=== PATIENT | female | born 1990 | race Caucasian/White ===

== ENCOUNTER 2018-07-20 16:13 | Emergency (ER) | payer SELFPAY ==
[~2018-07-20] VITALS: Ht 160 cm; Wt 52.2 kg
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
[2018-07-20] MEDS ORDERED: ONDANSETRON 4 MG TAB.RAPDIS ONE (16:24)
[2018-07-20] MEDS ORDERED: HYDROCODONE/APAP 10/325MG 1 EA TABLET ONE (16:24)
[2018-07-20] MEDS ORDERED: LIDOCAINE 1% INJ 50 ML MDV IJ ONE ×2 (16:25→16:30)
[2018-07-20] MEDS ORDERED: ONDANSETRON 4 MG TAB.RAPDIS SL ONE (16:30)
[2018-07-20] MEDS ORDERED: HYDROCODONE/APAP 10/325MG 1 EA TABLET PO ONE (16:30)
--- NOTE | 2018-07-20 17:22 | NUR ---
PATIENT WAS TAKEN TO CT
--- NOTE | 2018-07-20 17:34 | NUR ---
PT IS BACK FROM CT
[2018-07-20 18:29] VITALS: BP 122/66
--- NOTE | 2018-07-20 18:29 | NUR ---
Patient discharged to home in stable condition. Written and verbal after care instructions given. Patient verbalizes understanding of instruction.
== END 2018-07-20 18:31 | disposition home or self-care (01) ==
LOC: ER 16:16
DX: S01.81XA Laceration without foreign body of other part of head, initial encounter (principal); S06.0X9A Concussion with loss of consciousness of unspecified duration, initial encounter; S70.02XA Contusion of left hip, initial encounter; S40.012A Contusion of left shoulder, initial encounter; S80.02XA Contusion of left knee, initial encounter; W05.2XXA Fall from non-moving motorized mobility scooter, initial encounter; Y93.89 Activity, other specified; Y92.89 Other specified places as the place of occurrence of the external cause; Y99.8 Other external cause status
CPT/HCPCS: 70450-TC; 73030-TC; 73502; 73560-TC; A4606; A6402; A6403; J3490; Q0162; Z7610